=== PATIENT | female | born 1970 | race Caucasian/White ===

== ENCOUNTER 2018-11-09 16:40 | Emergency (ER) | payer BC, OTHER ==
--- NOTE | 2018-11-09 16:53 | ERPHSYRPT ---
- History of Present Illness Time Seen by Provider: 11/09/18 16:52 Source: patient, other (dr. abiel mccray) Exam Limitations: no limitations Physician History: 48 y/o white female with h/o htn presents from dr. abiel mccray's office with c/ o left facial numbness and dizziness intermittently for 4 to 5 days. pt states dizziness resolves in just a few seconds when it comes. pt denies visual changes and denies cp, denies soa and denies abd pain. she has no n/v/d. she denies head injury and denies flu like sx. Timing/Duration: today Severity: mild Character of Deficits: Left Facial (numbness), other (dizziness) Deficits: no difficulties Baseline/Normal Cognition: alert 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 Current Cognition: alert 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 Associated Symptoms: denies symptoms, paresthesia (left face), No confusion, No loss of consciousness, No nausea, No vomiting, No weakness, No seizures, No slurred speech, No vision changes, No chest pain Allergies/Adverse Reactions: No Known Drug Allergies Allergy (Unverified 04/10/12 17:12) Home Medications: No Home Meds 04/10/12 [History] Hx Tetanus, Diphtheria Vaccination/Date Given: No Hx Influenza Vaccination/Date Given: No Hx Pneumococcal Vaccination/Date Given: No - Review of Systems Constitutional: No Symptoms Eyes: No Symptoms Ears, Nose, & Throat: No Symptoms Respiratory: No Symptoms Cardiac: No Symptoms Abdominal/Gastrointestinal: No Symptoms Genitourinary Symptoms: No Symptoms Musculoskeletal: No Symptoms Skin: No Symptoms Neurological: Dizziness, Parasthesia (left facial) Psychological: No Symptoms Endocrine: No Symptoms Hematologic/Lymphatic: No Symptoms Immunological/Allergic: No Symptoms All Other Systems: Reviewed and Negative - Past Medical History Pertinent Past Medical History: Yes Neurological History: No Pertinent History ENT History: No Pertinent History Cardiac History: No Pertinent History Respiratory History: No Pertinent History Endocrine Medical History: No Pertinent History Musculoskeletal History: No Pertinent History GI Medical History: No Pertinent History History: No Pertinent History Psycho-Social History: No Pertinent History Female Reproductive Disorders: No Pertinent History Other Medical History: GALLSTONES - Past Surgical History Past Surgical History: Yes Neuro Surgical History: No Pertinent History Cardiac: No Pertinent History Respiratory: No Pertinent History Gastrointestinal: No Pertinent History Genitourinary: No Pertinent History Musculoskeletal: No Pertinent History Female Surgical History: No Pertinent History Other Surgical History: SINUS SURGERY. - Social History Smoking Status: Current every day smoker Exposure to second hand smoke: No Drug Use: none Patient Lives Alone: No Significant Family History: no pertinent family hx - Nursing Vital Signs Nursing Vital Signs: Initial Vital Signs Temperature 97.7 F 11/09/18 16:52 Respiratory Rate 18 11/09/18 16:52 Blood Pressure 152/86 11/09/18 16:52 O2 Sat by Pulse Oximetry 99 11/09/18 16:52 Pain Scale Pain Intensity 0 - Amy Coma Scale Best Eye Response (May): (4) open spontaneously Best Verbal Response (May): (5) oriented Best Motor Response (Lancing): (6) obeys commands May Total: 15 - Physical Exam General Appearance: no apparent distress, alert, anxiety Eye Exam: bilateral eye: normal inspection, PERRL, EOMI Ears, Nose, Throat Exam: normal ENT inspection, moist mucous membranes Neck Exam: normal inspection, non-tender, supple, full range of motion Respiratory: normal breath sounds, lungs clear, airway intact, No chest tenderness, No respiratory distress, No accessory muscle use, No rhonchi, No wheezing, No stridor Cardiovascular: regular rate/rhythm, normal heart sounds, normal peripheral pulses Gastrointestinal: soft, normal bowel sounds, No tenderness, No guarding, No rebound Pelvic Exam: not done Rectal Exam: not done Back Exam: normal inspection, normal range of motion, No CVA tenderness, No vertebral tenderness Extremity Exam: normal inspection, normal range of motion, pelvis stable Mental Status: alert, 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, 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 Exam: normal hearing, normal speech, PERRL, facial paresthesias (left) Coordination/Gait: normal finger to nose, normal gait Motor/Sensory: no motor deficit, no sensory deficit Skin Exam: normal color, warm, dry SpO2 Interpretation: normal O2 Delivery: Room Air - Course Nursing assessment & vital signs reviewed: Yes EKG Interpreted by Me: RATE (71), Sinus Rhythm, NORMAL AXIS, NORMAL INTERVALS, NORMAL QRS, Other (no changes from normal ekg dated 07/31/15) Ordered Tests: Active Orders 24 hr Category Date Time Status Rewind Operator STAT Care 11/09/18 17:04 Active Clean Catch Urine Specimen STAT Care 11/09/18 17:04 Active EKG-ER Only STAT Care 11/09/18 17:04 Active IV Insertion STAT Care 11/09/18 17:04 Active Pulse Oximetry (ED) STAT Care 11/09/18 17:04 Active HEAD WITHOUT CONTRAST [CT] Stat Exams 11/09/18 16:54 Taken CBC W DIFF Stat Lab 11/09/18 17:00 Completed CMP Stat Lab 11/09/18 17:00 Completed UA W/RFX UR CULTURE Stat Lab 11/09/18 17:28 Completed Lab/Rad Data: Laboratory Result Diagrams 11/09/18 17:00 11/09/18 17:00 Laboratory Results 11/09/18 11/09/18 11/09/18 Range/Units 17:28 17:00 17:00 WBC 7.7 (4.0-10.5) K/mm3 RBC 4.81 (4.1-5.4) M/mm3 Hgb 14.3 (12.0-16.0) gm/dl Hct 43.5 (35-47) % MCV 90.4 (78-100) fl MCH 29.7 (26-32) pg MCHC 32.9 (32-36) g/dl RDW 13.9 (11.5-14.0) % Plt Count 355 (150-450) K/mm3 MPV 10.0 H (6-9.5) fl Gran % 57.8 (36.0-66.0) % Eos # (Auto) 0.13 (0-0.5) Absolute Lymphs (auto) 2.36 (1.0-4.6) Absolute Monos (auto) 0.75 (0.0-1.3) Lymphocytes % 30.5 (24.0-44.0) % Monocytes % 9.7 (0.0-12.0) % Eosinophils % 1.7 (0.00-5.0) % Basophils % 0.3 (0.0-0.4) % Absolute Granulocytes 4.48 (1.4-6.9) Basophils # 0.02 (0-0.4) Sodium 140 (137-145) mmol/L Potassium 3.5 (3.5-5.1) mmol/L Chloride 102 (98-107) mmol/L Carbon Dioxide 27 (22-30) mmol/L Anion Gap 14.7 (5-15) MEQ/L BUN 12 (7-17) mg/dL Creatinine 0.55 (0.52-1.04) mg/dL Estimated GFR > 60.0 ML/MIN Glucose 108 H (74-106) mg/dL Calcium 9.4 (8.4-10.2) mg/dL Total Bilirubin 0.50 (0.2-1.3) mg/dL AST 24 (14-36) U/L ALT 29 (0-35) U/L Alkaline Phosphatase 71 (38-126) U/L Serum Total Protein 7.9 (6.3-8.2) g/dL Albumin 4.7 (3.5-5.0) g/dL Urine Color YELLOW (YELLOW) Urine Appearance CLEAR (CLEAR) Urine pH 6.0 (5-6) Ur Specific [place] 1.016 (1.005-1.025) Urine Protein NEGATIVE (Negative) Urine Ketones NEGATIVE (NEGATIVE) Urine Blood NEGATIVE (0-5) Kashif/ul Urine Nitrite NEGATIVE (NEGATIVE) Urine Bilirubin NEGATIVE (NEGATIVE) Urine Urobilinogen NEGATIVE (0-1) mg/dL Ur Leukocyte Esterase NEGATIVE (NEGATIVE) Urine WBC (Auto) NONE (0-5) /HPF Urine RBC (Auto) NONE (0-2) /HPF U Epithel Cells (Auto) NONE (FEW) /HPF Urine Bacteria (Auto) NONE (NEGATIVE) /HPF Urine Mucus (Auto) SLIGHT (NEGATIVE) /HPF Urine Culture Reflexed NO (NO) Urine Glucose NEGATIVE (NEGATIVE) mg/dL - Progress Progress: unchanged, re-examined Progress Note: 11/09/18 18:36 ct scan head no acute process Counseled pt/family regarding: lab results, diagnosis, need for follow-up, rad results - Departure Time of Disposition: 18:36 Departure Disposition: Home Clinical Impression: Left facial numbness Condition: Stable Critical Care Time: No Referrals: JACQUELINE MCCRAY [Primary Care Provider] - Additional Instructions: follow up with primary doctor for further management. continue medications as prescribed
[2018-11-09 17:15] LABS: BASOPHIL % 0.3 % (0.0-0.4); Basophil (Absolute #) 0.02 (0-0.4); Eosinophil % 1.7 % (0.00-5.0); Eosinophil (Absolute #) 0.13 (0-0.5); Granulocyte Absolute (ANC) 4.48 (1.4-6.9); Granulocytes % 57.8 % (36.0-66.0); Hematocrit 43.5 % (35-47); Hemoglobin 14.3 gm/dl (12.0-16.0); Lymphocyte (Absolute #) 2.36 (1.0-4.6); Lymphocytes % 30.5 % (24.0-44.0); Mean Cell Volume 90.4 fl (78-100); Mean Corpuscular Hemoglobin 29.7 pg (26-32); Mean Corpuscular Hgb Concent. 32.9 g/dl (32-36); Monocyte (Absolute #) 0.75 (0.0-1.3); Monocytes % 9.7 % (0.0-12.0); Platelet Count 355 K/mm3 (150-450); Red Blood Count 4.81 M/mm3 (4.1-5.4); Red Cell Distribution Width 13.9 % (11.5-14.0); White Blood Count 7.7 K/mm3 (4.0-10.5)
[2018-11-09 17:33] LABS: ALBUMIN 4.7 g/dL (3.5-5.0); ALKALINE PHOSPHATASE 71 U/L (38-126); ANION GAP 14.7 MEQ/L (5-15); BLOOD UREA NITROGEN 12 mg/dL (7-17); CHLORIDE 102 mmol/L (98-107); Calcium 9.4 mg/dL (8.4-10.2); Carbon Dioxide 27 mmol/L (22-30); Creatinine 1 0.55 mg/dL (0.52-1.04); Glucose 108 mg/dL (74-106); Potassium 3.5 mmol/L (3.5-5.1); SGOT/AST 24 U/L (14-36); SGPT/ALT 29 U/L (0-35); SODIUM 140 mmol/L (137-145); Total Protein 7.9 g/dL (6.3-8.2)
[2018-11-09 17:55] LABS: Appearance CLEAR (CLEAR); Bilirubin NEGATIVE (NEGATIVE); Blood NEGATIVE Ery/ul (0-5); Glucose NEGATIVE (NEGATIVE); Ketones NEGATIVE (NEGATIVE); Leukocyte Esterase NEGATIVE (NEGATIVE); Mucus SLIGHT /HPF (NEGATIVE); Nitrite NEGATIVE (NEGATIVE); Protein,Urine Dip NEGATIVE (Negative); Specific Gravity 1.016 (1.005-1.025); Urobilinogen NEGATIVE mg/dL (0-1)
[2018-11-09 18:43] VITALS: BP 92/67; PULSE 70; O2SAT 98
--- NOTE | 2018-11-10 08:43 | XRAY ---
Indication: Left facial numbness. Dizziness. Hypertension. Multiple contiguous axial images obtained through the head without contrast. Comparison: December 16, 2012. Stable normal appearing brain parenchyma, ventricles, and bony calvarium. Visualized paranasal sinuses demonstrates tiny right maxillary sinus fluid leveling with stable bilateral antrectomy. Mastoid air cells are clear. Impression: Normal CT head without contrast exam. Incidental minimal paranasal sinus disease. CT DI 68.51
== END 2018-11-09 18:43 | disposition home or self-care (01) ==
LOC: ED 16:40
DX: R20.0 Anesthesia of skin (principal); I10 Essential (primary) hypertension; R42 Dizziness and giddiness; Z72.0 Tobacco use
CPT/HCPCS: 36000; 36415; 70450; 80053; 81001; 85025; 93005; 93041; 99284

== ENCOUNTER 2020-08-29 18:55 | Emergency (ER) | payer BC ==
[2020-08-29] MEDS ORDERED: Vibramycin 100 MG PO ONE (19:11)
[2020-08-29] MEDS ORDERED: DELTASONE 20 MG PO ONE (19:12)
[2020-08-29] MEDS ORDERED: DELTASONE 20 MG ONE (19:19)
[2020-08-29] MEDS ORDERED: Vibramycin 100 MG ONE (19:19)
--- NOTE | 2020-08-29 19:31 | ERPHSYRPT ---
- History of Present Illness Source: patient Exam Limitations: no limitations Patient Subjective Stated Complaint: Pt states that she has been having mouth pain in her entire mouth and has been taking Clindamycin and had a shot of Rocephin last Thursday Triage Nursing Assessment: Pt was brought to the ER by her daughter, hypertensive, pt states that she has pain in her entire mouth and radiates up her head, pt has a bad upper back right side tooth, rates pain 7/10, went to md last week and was placed on antibiotics Physician History: Patient is a 50-year-old female with pain in her mouth. Patient has had some swelling in her right upper tooth which is kind of spreading up into the other side and up towards her cheek bone. Patient saw her primary who gave her a shot of Rocephin and started her on clindamycin at 150 mg 4 times a day. This was done about 5 days ago. Patient states that she does not feel much better. Patient is due to see a dentist in 2 days and is hoping to get this under better control. Patient denies fever. She does admit to poor dentition on the right upper side with embedded bruit and fractured teeth and cavities. Timing/Duration: weeks (1) Severity: moderate ENT Location: facial, dental Prearrival Treatment: prescription meds Modifying Factors: Improves With: nothing Associated Symptoms: facial pain/swelling Allergies/Adverse Reactions: No Known Drug Allergies Allergy (Verified 08/29/20 19:13) Home Medications: Aspirin 81 gm Chew [Baby Aspirin 81 mg Chew] 81 mg PO DAILY 08/29/20 [History] Fenofibrate Nanocrystallized [Fenofibrate] 48 mg PO DAILY 08/29/20 [History] Metformin HCl 500 mg [Glucophage 500 MG] 500 mg PO BIDWM 08/29/20 [History] hydroCHLOROthiazide [Hydrochlorothiazide] 12.5 mg PO DAILY 08/29/20 [History] Hx Tetanus, Diphtheria Vaccination/Date Given: No Hx Influenza Vaccination/Date Given: No Hx Pneumococcal Vaccination/Date Given: No Travel Risk - International Travel Have you traveled outside of the country in past 3 weeks: No - Coronavirus Screening Are you exhibiting any of the following symptoms?: No Close contact with a COVID-19 positive Pt in past 14-21 Days: No - Review of Systems Constitutional: No Fever, No Chills Eyes: No Symptoms Ears, Nose, & Throat: Mouth Swelling, Other (Dental pain) Respiratory: No Cough, No Dyspnea Cardiac: No Chest Pain, No Edema, No Syncope Abdominal/Gastrointestinal: No Abdominal Pain, No Nausea, No Vomiting, No Diarrhea Genitourinary Symptoms: No Dysuria Musculoskeletal: No Back Pain, No Neck Pain Skin: No Rash Neurological: No Dizziness, No Focal Weakness, No Sensory Changes Psychological: No Symptoms Endocrine: No Symptoms All Other Systems: Reviewed and Negative - Past Medical History Pertinent Past Medical History: Yes Neurological History: No Pertinent History ENT History: No Pertinent History Cardiac History: No Pertinent History Respiratory History: No Pertinent History Endocrine Medical History: No Pertinent History Musculoskeletal History: No Pertinent History GI Medical History: No Pertinent History History: No Pertinent History Psycho-Social History: No Pertinent History Female Reproductive Disorders: No Pertinent History Other Medical History: GALLSTONES - Past Surgical History Past Surgical History: Yes Neuro Surgical History: No Pertinent History Cardiac: No Pertinent History Respiratory: No Pertinent History Gastrointestinal: No Pertinent History Genitourinary: No Pertinent History Musculoskeletal: No Pertinent History Female Surgical History: No Pertinent History Other Surgical History: SINUS SURGERY. - Social History Smoking Status: Current every day smoker Exposure to second hand smoke: Yes Drug Use: none Patient Lives Alone: No Significant Family History: no pertinent family hx - Female History Hx Now: No - Nursing Vital Signs Nursing Vital Signs: Initial Vital Signs Temperature 98.0 F 08/29/20 19:05 Pulse Rate 79 08/29/20 19:05 Blood Pressure 158/94 08/29/20 19:05 O2 Sat by Pulse Oximetry 98 08/29/20 19:05 Pain Scale Pain Intensity 7 - Physical Exam General Appearance: mild distress, alert Eye Exam: bilateral eye: PERRL, EOMI Nasal Exam: normal inspection Throat Exam: pharynx normal, dental tenderness (Tooth numbers 1-3), moist mucus membranes, No tonsillar exudate Neck Exam: normal inspection, non-tender, supple Cardiovascular/Respiratory Exam: normal breath sounds, regular rate/rhythm Abdominal Exam: non-tender, soft Neurologic Exam: alert, 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, sensation nml, No motor deficits Skin Exam: normal color, warm, dry SpO2 Interpretation: normal SpO2: 98 - Course Nursing assessment & vital signs reviewed: Yes Ordered Tests: Medication Summary Discontinued Medications Generic Name Dose Route Start Last Admin Trade Name Bria PRN Reason Stop Dose Admin Doxycycline Hyclate 100 mg 08/29/20 19:11 08/29/20 19:23 Vibramycin 100 Mg PO 08/29/20 19:12 100 mg STAT ONE Administration Doxycycline Hyclate Confirm 08/29/20 19:19 Vibramycin 100 Mg Administered 08/29/20 19:20 Dose 100 mg .ROUTE .STK-MED ONE Prednisone 40 mg 08/29/20 19:12 08/29/20 19:22 Deltasone 20 Mg PO 08/29/20 19:13 40 mg STAT ONE Administration Prednisone Confirm 08/29/20 19:19 Deltasone 20 Mg Administered 08/29/20 19:20 Dose 40 mg .ROUTE .STK-MED ONE - Progress Progress: improved Progress Note: 08/29/20 19:39 Given that patient has been on clindamycin and not improving, will try different antibiotic. Patient is nontoxic, I do not feel that we need to do any work-up all lab testing. We will switch antibiotics to doxycycline and start her on some prednisone. Doxycycline will be for 10 days and prednisone at 40 mg for 5 days. Advised follow-up with dentist as scheduled. Counseled pt/family regarding: diagnosis, need for follow-up - Departure Departure Disposition: Home Clinical Impression: Dental abscess Condition: Stable Critical Care Time: No Referrals: JACQUELINE MCCRAY [Primary Care Provider] - Instructions: Tooth Abscess (DC) Additional Instructions: Monitor symptoms closely. Take new antibiotics as prescribed. I have also prescribed some steroids. Good oral hygiene. Consider salt water gargles. Follow-up with dentist as soon as possible or as scheduled. Return to ER if worse. Prescriptions: Prednisone 20 mg [Deltasone 20 mg] 40 mg PO DAILY 5 Days #10 tablet Doxycycline Hyclate 100 mg [Vibramycin 100 MG] 100 mg PO BID #20 tab
[2020-08-29 19:44] VITALS: BP 130/77; PULSE 76; O2SAT 99
== END 2020-08-29 19:44 | disposition home or self-care (01) ==
LOC: ED 18:55
DX: K04.7 Periapical abscess without sinus (principal); Z79.899 Other long term (current) drug therapy
CPT/HCPCS: 99283; A9270-GY